=== PATIENT | female | born 1960 | race Caucasian/White ===

== ENCOUNTER 2017-09-14 14:21 | Emergency (ER) | payer OTHER ==
[~2017-09-14] VITALS: Ht 167.6 cm; Wt 102.0 kg
[~2017-09-14 14:21] MED LIST: AMLODIPINE BESY10 MG; Aspirin E.C. PO; BACTRIM,SEPT1 TABLET PO; CEFDINIR300 MG PO; Cleocin PO; INDOCIN25 MG PO; LISINOPRIL-HCT1 EAC3 PO; LISINOPRIL-HCT1 EACH PO; MOBIC7.5 MG PO; Norvasc PO; PERCOCET 5/31 TABLET PO; VICODIN 5-3001 EACH PO
[2017-09-14] MEDS ORDERED: BACTRIM,SEPT1 TABLET PO (16:31)
[2017-09-14] MEDS ORDERED: KEFLEX500 MG PO (16:31)
[2017-09-14 16:40] VITALS: BP 117/73
== END 2017-09-14 16:40 | disposition home or self-care (01) ==
LOC: EME 14:21
DX: L03.012 Cellulitis of left finger (principal); Z86.14 Personal history of Methicillin resistant Staphylococcus aureus infection
CPT/HCPCS: 73130; 99281; 99283